=== PATIENT | male | born 1955 | race Hispanic/Latino ===

== ENCOUNTER 2021-03-21 19:00 | Inpatient (IN) | payer MEDICARE ==
[~2021-03-21] VITALS: Ht 162.6 cm; Wt 117.3 kg
[2021-03-21] MEDS ORDERED: BIVALIRUDIN 250 MG/VIAL IV ONE (19:40)
[2021-03-21] MEDS ORDERED: IOHEXOL-350 75 ML VIAL IV ONE (19:41)
[2021-03-21] MEDS ORDERED: MIDAZOLAM HCL 1 MG/ML 2ML VIAL ONE ×2 (19:41→22:34)
[2021-03-21] MEDS ORDERED: HEPARIN 10,000 UNIT/10ML (1,000 UNIT/ML) VIAL ONE (19:41)
[2021-03-21] MEDS ORDERED: NITROGLYCERIN 50MG VIAL IV ONE (19:41)
[2021-03-21] MEDS ORDERED: IOHEXOL 350 MG/ML 100ML INFUS..BTL IV ONE (19:41)
[2021-03-21] MEDS ORDERED: FENTANYL CITRATE PF 50 MCG/1 ML 2ML VIAL ONE ×2 (19:41→22:35)
[2021-03-21] MEDS ORDERED: LIDOCAINE HCL 400MG/20ML VIAL ONE (19:42)
[2021-03-21] MEDS ORDERED: EPTIFIBATIDE 75 MG/100 ML IV ONE (20:44)
[2021-03-21] MEDS ORDERED: EPTIFIBATIDE 2 MG/ML 10 ML VIAL IVP ONE (20:44)
[2021-03-21] MEDS ORDERED: EPTIFIBATIDE 75MG/100ML BOTTLE 100 ML IV SCH (20:50)
[2021-03-21] MEDS ORDERED: 0.9%NACL 1000ML 1,000 ML IV SCH (22:00)
[2021-03-21] MEDS ORDERED: PHARMACY COMMUNICATION MISC SCH (22:30)
[2021-03-21] MEDS ORDERED: ATROPINE 1MG SYG IVP ONE (22:38)
[2021-03-21] MEDS ORDERED: CLOPIDOGREL 300MG TAB ONE (22:38)
[2021-03-21 22:40] VITALS: BP 130/79
[2021-03-21 22:55] VITALS: BP 139/83
[2021-03-21 23:10] VITALS: BP 130/73
[2021-03-21] MEDS ORDERED: LOSA100T58 PO (23:20)
[2021-03-21 23:25] VITALS: BP 119/69
[2021-03-21] MEDS ORDERED: KETOROLAC 15MG/ML VIAL (15MG/ML) ONE (23:32)
[2021-03-21 23:55] VITALS: BP 109/66
[2021-03-22] VITALS (12 sets, daily range): BP systolic 91–150; BP diastolic 56–97
[2021-03-22] MEDS ORDERED: KETOROLAC 15MG/ML VIAL (15MG/ML) IV PRN
[2021-03-22] MEDS ORDERED: EPTIFIBATIDE 75MG/100ML BOTTLE 100 ML IV ONE (00:38)
[2021-03-22] MEDS ORDERED: ACETAMINOPHEN 325 MG TAB PO PRN ×2 (02:00)
[2021-03-22] MEDS ORDERED: ONDANSETRON 4MG INJ IV PRN (02:00)
[2021-03-22] MEDS ORDERED: NITROGLYCERIN 0.4 MG SL TAB SL PRN (02:00)
[2021-03-22] MEDS ORDERED: DIPHENHYDRAMINE HCL 25 MG CAPSULE PO PRN (02:00)
[2021-03-22 04:48] LABS: BASOPHILS % (AUTO) 0.3 % (0.0-5.0); EOSINOPHILS % (AUTO) 0.3 % (0.0-8.0); HEMATOCRIT 40.2 % (42-54); LYMPHOCYTES % (AUTO) 19.8 % (21.0-51.0); MEAN CORPUSCULAR HEMOGLOBIN 30.2 pg (27.0-33.0); MEAN CORPUSCULAR HGB CONC 32.1 g/dL (32.0-36.0); MEAN CORPUSCULAR VOLUME 94.1 fL (79-99); MONOCYTES % (AUTO) 5.9 % (3.0-13.0); NEUTROPHILS % (AUTO) 73.5 % (40.0-77.0); PLATELET COUNT (AUTO) 246 K/uL (130-400); RED BLOOD CELL COUNT(AUTO) 4.27 MIL/uL (4.50-6.20); RED CELL DISTRIBUTION WIDTH 14.4 % (11.0-15.5); WHITE BLOOD COUNT (AUTO) 6.3 K/uL (4.8-10.8)
[2021-03-22 05:17] LABS: ALBUMIN 2.8 g/dL (3.5-5.0); BILIRUBIN,TOTAL 0.5 mg/dL (0.2-1.0); CREATININE 1.1 mg/dL (0.5-1.5); POTASSIUM 4.3 mmol/L (3.5-5.1); TOTAL PROTEIN, SERUM 6.9 g/dL (6.0-8.3)
[2021-03-22] MEDS ORDERED: PRASUGREL HCL 10 MG TABLET PO SCH ×2 (09:00)
[2021-03-22] MEDS ORDERED: METOPROLOL SUCCINATE 50 MG TAB.SR.24H PO SCH (09:00)
[2021-03-22] MEDS: FAMOTIDINE 20MG VIAL IV SCH ×2 (09:19→20:39)
[2021-03-22] MEDS: ASPIRIN 81MG CHEW TAB PO SCH (09:19)
[2021-03-22] MEDS ORDERED: LISINOPRIL 2.5 MG TABLET PO SCH (09:30)
[2021-03-22] MEDS ORDERED: ATORVASTATIN 40 MG TABLET PO SCH (21:00)
[2021-03-23 03:12] VITALS: BP 149/91
[2021-03-23 04:44] LABS: HEMATOCRIT 39.3 % (42-54); MEAN CORPUSCULAR HEMOGLOBIN 30.1 pg (27.0-33.0); MEAN CORPUSCULAR HGB CONC 32.1 g/dL (32.0-36.0); RED BLOOD CELL COUNT(AUTO) 4.18 MIL/uL (4.50-6.20); RED CELL DISTRIBUTION WIDTH 14.2 % (11.0-15.5); WHITE BLOOD COUNT (AUTO) 6.1 K/uL (4.8-10.8)
[2021-03-23 05:00] LABS: CREATININE 1.2 mg/dL (0.5-1.5); POTASSIUM 3.5 mmol/L (3.5-5.1)
[2021-03-23] MEDS: FAMOTIDINE 20MG VIAL IV SCH (07:52)
[2021-03-23] MEDS: METOPROLOL SUCCINATE 50 MG TAB.SR.24H PO SCH ×2 (07:52→07:54)
[2021-03-23] MEDS: ASPIRIN 81MG CHEW TAB PO SCH (07:52)
[2021-03-23 08:29] VITALS: BP 154/96
[2021-03-23] MEDS ORDERED: PRASUGREL HCL 10 MG TABLET PO SCH (09:00)
[2021-03-23] MEDS ORDERED: LISINOPRIL 5 MG TABLET PO SCH (09:00)
[2021-03-23] MEDS ORDERED: LOSA1TAB37 PO (09:25)
[2021-03-23] MEDS ORDERED: ATOR40TA69 PO (09:25)
[2021-03-23] MEDS ORDERED: METO50TA9 PO (09:25)
[2021-03-23] MEDS ORDERED: ASPI-1005 PO (09:25)
[2021-03-23] MEDS ORDERED: PRAS10TA6 PO (09:25)
[2021-03-23] MEDS ORDERED: LOSARTAN/HYDROCHLOROTHIAZIDE 50-12.5MG TABLET PO SCH (09:30)
[2021-03-23 12:25] VITALS: BP 138/84
== END 2021-03-23 13:08 | disposition home or self-care (01) | DRG 246 ==
LOC: DAHIP 19:00 → UNDOADMIN 19:47 → 4DH 22:40
PROVIDERS: ADMIT Internal Medicine; ATTEND Internal Medicine
PROC: 027034Z Dilation of Coronary Artery, One Artery with Drug-eluting Intraluminal Device, Percutaneous Approach (ICD-10-PCS; principal; 2021-03-21)
PROC: 4A023N7 Measurement of Cardiac Sampling and Pressure, Left Heart, Percutaneous Approach (ICD-10-PCS; 2021-03-21)
PROC: B2111ZZ Fluoroscopy of Multiple Coronary Arteries using Low Osmolar Contrast (ICD-10-PCS; 2021-03-21)
PROC: B2151ZZ Fluoroscopy of Left Heart using Low Osmolar Contrast (ICD-10-PCS; 2021-03-21)
PROC: B41F1ZZ Fluoroscopy of Right Lower Extremity Arteries using Low Osmolar Contrast (ICD-10-PCS; 2021-03-21)
DX: I21.4 Non-ST elevation (NSTEMI) myocardial infarction (principal); I50.31 Acute diastolic (congestive) heart failure; Z68.41 Body mass index [BMI] 40.0-44.9, adult; E66.01 Morbid (severe) obesity due to excess calories; G47.30 Sleep apnea, unspecified; I25.10 Atherosclerotic heart disease of native coronary artery without angina pectoris; E78.2 Mixed hyperlipidemia; Z83.3 Family history of diabetes mellitus; Z82.49 Family history of ischemic heart disease and other diseases of the circulatory system; I11.0 Hypertensive heart disease with heart failure
CPT/HCPCS: 36415; 80048; 80053; 80061; 84484; 85025; 85027; 85347; 93005; 93458; 99156; 99157; C1760; C1769; C1887; C1894; C9606; G0378; J0461; J0583; J1327; J1644; J1885; J2250; J3010; J3490; J7030; Q9967

== ENCOUNTER → 2022-02-07 | Outpatient (CLI) | payer MEDICARE ==
[~2022-02-07] VITALS: Ht 180.3 cm; Wt 122.0 kg
[~2022-02-07] MED LIST: ASPI-1005 PO; ATOR10TA69 PO; ATOR40TA69 PO; CARV6.2579 PO; ISOS30TA92 PO; LOSA1TAB37 PO; LOSA50TA64 PO; METO50TA9 PO; PRAS10TA6 PO
[2022-02-07 11:55] LABS: BASOPHILS % (AUTO) 0.8 % (0.0-5.0); EOSINOPHILS % (AUTO) 3.1 % (0.0-8.0); HEMATOCRIT 45.2 % (42-54); LYMPHOCYTES % (AUTO) 35.2 % (21.0-51.0); MEAN CORPUSCULAR HEMOGLOBIN 30.1 pg (27.0-33.0); MEAN CORPUSCULAR HGB CONC 32.7 g/dL (32.0-36.0); MEAN CORPUSCULAR VOLUME 91.9 fL (79-99); MONOCYTES % (AUTO) 7.5 % (3.0-13.0); NEUTROPHILS % (AUTO) 53.2 % (40.0-77.0); PLATELET COUNT (AUTO) 261 K/uL (130-400); RED BLOOD CELL COUNT(AUTO) 4.92 MIL/uL (4.50-6.20); RED CELL DISTRIBUTION WIDTH 13.7 % (11.0-15.5); WHITE BLOOD COUNT (AUTO) 5.2 K/uL (4.8-10.8)
[2022-02-07 12:01] LABS: CREATININE 1.1 mg/dL (0.5-1.5); POTASSIUM 3.3 mmol/L (3.5-5.1)
[2022-02-07 12:18] LABS: INR 0.94 (0.85-1.15); PROTHROMBIN TIME 10.3 SEC (9.6-11.6)
[2022-02-07 12:20] LABS: PARTIAL THROMBOPLASTIN TIME 27.9 SEC (26.3-35.5)
[2022-02-07 12:42] LABS: B-TYPE NATRIURETIC PEPTIDE 34 pg/mL (0-100)
[2022-02-08 11:45] VITALS: BP 158/95
== END | disposition home or self-care (01) ==
LOC: DAH 10:00 → EDSTATUS 10:00
PROVIDERS: ATTEND Student in an Organized Health Care Education/Training Program
DX: Z01.810 Encounter for preprocedural cardiovascular examination (principal); I25.10 Atherosclerotic heart disease of native coronary artery without angina pectoris; Z79.01 Long term (current) use of anticoagulants; Z79.899 Other long term (current) drug therapy
CPT/HCPCS: 36415; 80048; 83880; 85025; 85610; 85730; 87426; 93005

== ENCOUNTER → 2022-04-23 | Outpatient (CLI) | payer MEDICARE ==
[~2022-04-23] MED LIST changes: -ATOR40TA69 PO; -LOSA1TAB37 PO; -METO50TA9 PO
== END | disposition home or self-care (01) ==
LOC: SHCH 12:40
PROVIDERS: ATTEND Student in an Organized Health Care Education/Training Program
DX: I73.9 Peripheral vascular disease, unspecified (principal)
CPT/HCPCS: 93925

== ENCOUNTER 2022-07-13 06:12 | Day surgery (SDC) | payer MEDICARE ==
[2022-07-11 09:58] LABS: BASOPHILS % (AUTO) 0.5 % (0.0-5.0); EOSINOPHILS % (AUTO) 2.6 % (0.0-8.0); HEMATOCRIT 45.1 % (42-54); LYMPHOCYTES % (AUTO) 34.8 % (21.0-51.0); MEAN CORPUSCULAR HEMOGLOBIN 28.3 pg (27.0-33.0); MEAN CORPUSCULAR HGB CONC 31.7 g/dL (32.0-36.0); MEAN CORPUSCULAR VOLUME 89.3 fL (79-99); MONOCYTES % (AUTO) 5.9 % (3.0-13.0); PLATELET COUNT (AUTO) 261 K/uL (130-400); RED BLOOD CELL COUNT(AUTO) 5.05 MIL/uL (4.50-6.20); RED CELL DISTRIBUTION WIDTH 13.5 % (11.0-15.5); WHITE BLOOD COUNT (AUTO) 6.1 K/uL (4.8-10.8)
[2022-07-11 10:06] LABS: APPEARANCE,URINE CLOUDY (CLEAR); BILIRUBIN,URINE NEGATIVE (NEGATIVE); COLOR,URINE YELLOW (YELLOW); GLUCOSE, URINE (UA) NEGATIVE (NEGATIVE); KETONES,URINE NEGATIVE (NEGATIVE); LEUKOCYTE ESTERASE ,URINE 500 Leu/uL (NEGATIVE); NITRATE,URINE 2+ (NEGATIVE); PROTEIN,URINE 10 mg/dL (NEGATIVE); UROBILINOGEN,URINE 0.2 mg/dL (0.2-1.0)
[2022-07-11 10:12] LABS: CREATININE 1.1 mg/dL (0.5-1.5); POTASSIUM 4.7 mmol/L (3.5-5.1)
[2022-07-11 10:13] LABS: BACTERIA,URINE MANY /HPF (None Seen); MUCUS,URINE RARE LPF (None Seen); SQUAMOUS EPITHELIAL CELL,UR FEW /HPF (0-2); WBC,URINE TNTC /HPF (0-1)
[2022-07-11 10:15] LABS: INR 0.99 (0.85-1.15); PROTHROMBIN TIME 10.8 SEC (9.6-11.6)
[2022-07-11 10:17] LABS: PARTIAL THROMBOPLASTIN TIME 29.3 SEC (26.3-35.5)
[2022-07-11 10:31] LABS: B-TYPE NATRIURETIC PEPTIDE 718 pg/mL (0-100)
[2022-07-11 10:37] VITALS: BP 163/87
[2022-07-13] VITALS (14 sets, daily range): BP systolic 110–189; BP diastolic 47–92
[~2022-07-13 06:12] MED LIST changes: -ASPI-1005 PO; -CARV6.2579 PO; -ISOS30TA92 PO
[2022-07-13] MEDS ORDERED: 0.9%NACL 1000ML 1,000 ML IV ONE (06:30)
[2022-07-13] MEDS ORDERED: DOXA1TAB PO (07:18)
[2022-07-13] MEDS ORDERED: VERAPAMIL HCL 2.5 MG/ML VIAL ONE (07:25)
[2022-07-13] MEDS ORDERED: FENTANYL CITRATE PF 50 MCG/1 ML 2ML VIAL ONE (07:26)
[2022-07-13] MEDS ORDERED: MIDAZOLAM HCL 1 MG/ML 2ML VIAL ONE (07:26)
[2022-07-13] MEDS ORDERED: IOHEXOL-350 50ML VIAL IV ONE (07:28)
[2022-07-13] MEDS ORDERED: LIDOCAINE HCL 400MG/20ML VIAL ONE (07:28)
[2022-07-13] MEDS ORDERED: IOHEXOL 350 MG/ML 100ML INFUS..BTL IV ONE (07:28)
[2022-07-13] MEDS ORDERED: NITROGLYCERIN 50MG VIAL ONE (07:28)
[2022-07-13] MEDS ORDERED: HEPARIN 10,000 UNIT/10ML (1,000 UNIT/ML) VIAL ONE (07:28)
[2022-07-13] MEDS ORDERED: HYDRALAZINE 20MG/ML VIAL ONE (08:27)
[2022-07-13] MEDS ORDERED: ISOSORBIDE MONO 30MG SR TAB PO SCH (08:38)
[2022-07-13] MEDS ORDERED: DEXTROSE 50%-WATER 50 ML DISP.SYRIN IV PRN (09:00)
[2022-07-13] MEDS ORDERED: 0.9%NACL 1000ML 1,000 ML IV SCH (09:00)
[2022-07-13] MEDS ORDERED: GLUCAGON 1MG KIT 1 MG ML IM PRN (09:00)
[2022-07-13] MEDS ORDERED: HYDROCODONE/ACETAMINOPHEN 7.5/325 MG TAB ONE (11:11)
[2022-07-13] MEDS ORDERED: HYDROCODONE/ACETAMINOPHEN 7.5/325 MG TAB PO ONE ×2 (11:30→12:00)
[2022-07-13] MEDS ORDERED: HYDROCODONE/ACETAMINOPHEN 7.5/325 MG TAB PO PRN (15:00)
== END 2022-07-13 13:10 | disposition home or self-care (01) ==
LOC: DAH 06:12
PROVIDERS: ATTEND Student in an Organized Health Care Education/Training Program
DX: I25.119 Atherosclerotic heart disease of native coronary artery with unspecified angina pectoris (principal); I10 Essential (primary) hypertension; E78.5 Hyperlipidemia, unspecified; I73.9 Peripheral vascular disease, unspecified; Z95.5 Presence of coronary angioplasty implant and graft; Z79.899 Other long term (current) drug therapy; Z79.01 Long term (current) use of anticoagulants; Z82.49 Family history of ischemic heart disease and other diseases of the circulatory system; Z83.3 Family history of diabetes mellitus
CPT/HCPCS: 80048; 83880; 85025; 85610; 85730; 87088; 81001; 36415; 71045; 93005; 93458; 87077; 87186; 82948; C1887; C1769 ×2; C1894; J3010; J3490 ×3; J7030; J0360; J1644 ×2; J2250; Q9967; A4215; A4222; A6260; A4221; A4663; A4216; A6206; A4606; Q9965 ×2; A4223 ×3; 96360; 96361; 99156; 99157